=== PATIENT | male | born 1990 ===

== ENCOUNTER 2021-05-24 17:23 | Emergency (ER) | payer SELFPAY ==
[2021-05-24] MEDS ORDERED: LORazepam 2 MG/ML VIAL IM PRN (17:59)
[2021-05-24] MEDS ORDERED: LORazepam 1 MG TAB PO ONE (17:59)
[2021-05-24] MEDS ORDERED: HALOPERIDOL LACTATE 5 MG/1 ML INJ IM PRN (17:59)
--- NOTE | 2021-05-24 18:00 | Emergency Department Report ---
ED General Adult HPI - General Chief complaint: Psych Stated complaint: I feel like my brain is out of control Time Seen by Provider: 05/24/21 17:52 Source: patient, RN notes reviewed Mode of arrival: Ambulatory Limitations: No Limitations - History of Present Illness Initial comments: The patient was evaluated in the emergency department for symptoms described in the history of present illness. He/she was evaluated in the context of the global COVID-19 pandemic, which necessitated consideration that the patient might be at risk for infection with the virus that causes COVID-19. Institutional protocols and algorithms that pertain to the evaluation of patients at risk for COVID-19 are in a state of rapid change based on information released by regulatory bodies including the CDC and federal and state organizations. These policies and algorithms were followed during the patient's care in the emergency department. Please note that these policies, procedures and recommendations changed on a rapid basis. The patient is a 30-year-old gentleman, who is not known to myself previously, with a past history of psychiatric disease, who presents to the ER with a request/chief complaint of "it feels like my brain is running away from me." The patient denies physical pain, but endorses racing thoughts. He endorses nonspecific hallucinations. He denies homicidal and suicidal ideation. He denies access to guns or firearms. He denies urinary symptoms. He denies Covid symptoms. He he reports recent psychiatric evaluation, and reports being started on psychiatric medications, which he states "are not working for me." -: Gradual Consistency: constant Improves with: none Worsens with: none Associated Symptoms: denies other symptoms - Related Data Previous Rx's Medication Instructions Recorded Last Taken Type OLANZapine [Zyprexa] 15 mg PO DAILY 30 Days #30 05/25/21 Unknown Rx Allergies Allergy/AdvReac Type Severity Reaction Status Date / Time No Known Allergies Allergy Unverified 05/24/21 17:29 ED Review of Systems ROS: Stated complaint: MENTAL EVAL Other details as noted in HPI Constitutional: denies: fever Eyes: denies: eye discharge ENT: denies: epistaxis Respiratory: denies: cough Cardiovascular: denies: chest pain, palpitations Gastrointestinal: denies: abdominal pain Genitourinary: denies: dysuria Psychiatric: as per HPI, anxiety, auditory hallucinations, visual h allucinations. denies: homicidal thoughts, suicidal thoughts ED Past Medical Hx - Medications Home Medications: Home Medications Medication Instructions Recorded Confirmed Last Taken Type OLANZapine [Zyprexa] 15 mg PO DAILY 30 Days #30 05/25/21 Unknown Rx ED Physical Exam - General Limitations: No Limitations General appearance: alert, anxious - Head Head exam: Present: atraumatic, normocephalic - Eye Eye exam: Present: normal appearance, PERRL, EOMI. Absent: nystagmus - ENT ENT exam: Present: normal exam, normal orophraynx, mucous membranes moist, normal external ear exam - Neck Neck exam: Present: normal inspection, full ROM. Absent: tenderness, meningismus - Respiratory Respiratory exam: Present: normal lung sounds bilaterally. Absent: respiratory distress, wheezes, rales, rhonchi, stridor, decreased breath sounds - Cardiovascular Cardiovascular Exam: Present: normal rhythm, tachycardia, normal heart sounds. Absent: bradycardia, irregular rhythm, systolic murmur, diastolic murmur, rubs, gallop - GI/Abdominal GI/Abdominal exam: Present: soft. Absent: distended, tenderness, guarding, rebound, rigid, pulsatile mass - Rectal Rectal exam: Present: deferred - Extremities Exam Extremities exam: Present: normal inspection, full ROM, other (2+ pulses noted in the bilateral upper and lower extremities. There is no palpable cord. negative Homans sign. Muscular compartments are soft. The pelvis is stable.). Absent: pedal edema, calf tenderness - Back Exam Back exam: Present: normal inspection, full ROM. Absent: tenderness, CVA tenderness (R), CVA tenderness (L), paraspinal tenderness, vertebral tenderness - Neurological Exam Neurological exam: Present: alert, normal gait, other (No facial droop. Tongue midline. Extraocular movements intact bilaterally. Facial sensation intact to light touch in V1, V2, V3 distribution bilaterally. 5 and a 5 strength in 4 ext remities. Sensation intact to light touch in 4 extremities.). Absent: motor sensory deficit - Psychiatric Psychiatric exam: Present: normal mood, anxious - Skin Skin exam: Present: warm, dry, intact, normal color. Absent: rash ED Course Vital Signs 05/24/21 05/24/21 05/24/21 17:36 18:36 22:00 Temperature 97.2 F L 98.7 F Pulse Rate 117 H 114 H Respiratory 18 18 Rate Blood Pressure 140/70 120/84 [Left] O2 Sat by Pulse 99 97 Oximetry 05/25/21 10:57 Temperature Pulse Rate Respiratory Rate Blood Pressure [Left] O2 Sat by Pulse 97 Oximetry - Reevaluation(s) Reevaluation #1: 05/24/21 18:43 Differential diagnosis, including but not limited to: Psychosis, disorganized be havior, secondary gain, medical screening examination, behavioral health screening examination Assessment and plan: 30-year-old gentleman, who was afebrile with reassuring vital signs (blood pressure 140/70 mmHg systolic), tachycardic, likely secondary to anxiety, as well as decompensated psychiatric disease, presenting to the ER today primarily for medical clearance for psychiatric evaluation. Patient placed on hold status. Appropriate screening laboratory studies ordered. As needed medications ordered. Psychiatric consultation requested. Anticipate that the psychiatric team will recommend 1013 hold for decompensated psychosis and delusions. Covid swab ordered in anticipation of potential psychiatric placement and disposition. We are currently awaiting laboratory studies and psychiatric consultation at this time 05/24/21 19:29 Laboratory studies are reviewed and appreciated they are unremarkable. Mental health consultation is pending at this time. The emergency room will follow along as this patient provides a urinalysis. Presuming tachycardia resolved, which we anticipate it will once anxiolysis is provided, we would consider this patient medically suitable for psychiatric disposition, placement. Reevaluation #2: 05/25/21 11:40 The patient is seen and reexamined. He is awake, alert, oriented and ambulating with a steady gait. He is not homicidal suicidal. He denies physical pain. His tachycardia is improved. He ate breakfast this morning without difficulty. Nursing team endorses no acute issues or emergent issues at this time. The patient was deemed medically suitable for psychiatric consultation and evaluation by myself yesterday. The psychiatric team have recommended discontinuation of 1013. He will therefore be discharged with outpatient resources. Indeterminant Covid swab reviewed and appreciated. Patient denied Covid symptoms to myself. His lung sounds are clear, and he is not hypoxic. He can follow-up as an outpatient for repeat testing ED Medical Decision Making - Lab Data Result diagrams: 05/24/21 18:10 05/24/21 18:10 Vital Signs 05/24/21 18:36 Temperature 97.2 F L Pulse Rate 117 H Respiratory 18 Rate O2 Sat by Pulse 99 Oximetry Vital Signs 05/24/21 18:36 Temperature 97.2 F L Pulse Rate 117 H Respiratory 18 Rate O2 Sat by Pulse 99 Oximetry Lab Results 05/24/21 05/24/21 05/24/21 Range/Units 18:10 18:10 18:10 WBC 8.6 (4.5-11.0) K/mm3 RBC 4.54 (3.65-5.03) M/mm3 Hgb 13.3 (11.8-15.2) gm/dl Hct 40.2 (35.5-45.6) % MCV 89 (84-94) fl MCH 29 (28-32) pg MCHC 33 (32-34) % RDW 14.1 (13.2-15.2) % Plt Count 321 (140-440) K/mm3 Sodium 140 (137-145) mmol/L Potassium 4.5 (3.6-5.0) mmol/L Chloride 103.7 (98-107) mmol/L Carbon Dioxide 21 L (22-30) mmol/L Anion Gap 20 mmol/L BUN 16 (9-20) mg/dL Creatinine 0.9 (0.8-1.3) mg/dL Estimated GFR > 60 ml/min BUN/Creatinine Ratio 18 % Glucose 116 H (75-100) mg/dL Calcium 9.1 (8.4-10.2) mg/dL Plasma/Serum Alcohol < 0.01 (0-0.07) % Critical care attestation.: If time is entered above; I have spent that time in minutes in the direct care of this critically ill patient, excluding procedure time. ED Disposition Clinical Impression: Encounter for medical screening examination, Encounter for behavioral health screening, History of schizophrenia Disposition: 01 HOME / SELF CARE / HOMELESS Is pt being admited?: No Does the pt Need Aspirin: No Condition: Good Additional Instructions: Please follow-up with outpatient resources that have been provided to the patient. Recommend outpatient COVID-19 testing, and a swab that patient had in the department was inconclusive. We do not suspect that the patient has Covid at this time. Avoid consumption of alcohol, tobacco, drugs and smoke products. Follow-up with outpatient resources that have been provided to the patient. Follow-up with your primary care doctor within the next month. Follow-up with an outpatient mental health specialist within the next week. Please return to the emergency room right away with new pain, worsened pain, migration of pain, projectile vomiting, change in mental status, confusion, inability tolerate liquid feeds, new, worsened or different symptoms not present on the initial emergency room evaluation Professional and Agency Contacts To help Resolve Crises (10/11) ID Crisis Line: Suicide Prevention Line: Crisis Text Line: Text START to 961516 Emergency: 911 Outpatient COMMUNITY Behavioral Health Resources: [facility]: [facility] [address], [place] [address] [place]: [facility] [address] [place] [address] Thursday thru Thursday - 8am - 5pm Call to schedule an assessment for mental health and substance abuse programs [facility] Address: [address] [place] [address] Thursday thru Thursday- 7am-2pm [facility] Address: [address] [place] [address] Thursday thru Thursday: 8:30AM-5PM Prescriptions: OLANZapine [Zyprexa] 15 mg PO DAILY 30 Days #30 Referrals: [facility] [Provider Group] - 3-5 Days [facility] [Outside] - 3-5 Days [facility] [Outside] - 3-5 Days
[2021-05-24 18:26] LABS: Hematocrit 40.2 % (35.5-45.6); Hemoglobin 13.3 gm/dl (11.8-15.2); Mean Corpuscular HGB Conc 33 % (32-34); Mean Corpuscular Volume 89 fl (84-94); Platelet Count 321 K/mm3 (140-440); Red Blood Count 4.54 M/mm3 (3.65-5.03); Red Cell Distribution Width 14.1 % (13.2-15.2)
[2021-05-24 18:41] LABS: BUN/Creatinine Ratio 18; Blood Urea Nitrogen 16 mg/dL (9-20); Calcium 9.1 mg/dL (8.4-10.2); Hemolysis Index 6
[2021-05-25 00:01] VITALS: BP 120/84
--- NOTE | 2021-05-25 11:16 | Consultation ---
History of Present Illness - Reason for Consult Consult date: 05/25/21 Reason for consult: mental health evaluation - History of Present Psychiatric Illness The patient is a 30 year old male with history of Paranoid Schizophrenia. In my interview with the patient, he is calm, alert and oriented x3. The patient patient reports being compliant with medications. He states " I keep flying out of my body." He endorses non commanding auiditory/visual hallucinations " voices saying save the word and I see bullets." He denies any current suicidal /homicidal ideation. PAST PSYCHIATRIC HISTORY Diagnoses:Paranoid Schizophrenia Suicide attempts or Self-harm behavior: Denies Prior psychiatric hospitalizations: Yes Substance Abuse history: Denies Previous psychiatric medications tried: Zyprexa, Risperidone Outpatient treatment: Denies PAST MEDICAL HISTORY: Family Psychiatric History: Not available SOCIAL HISTORY Marital Status: Single Living Arrangements: Homeless Employment Status: Unemployed Access to guns/weapons: None reported Education:GED History of Abuse: None reported Legal History: None reported REVIEW OF SYSTEMS Constitutional: Negative for weight loss ENT: Negative for stridor Respiratory: Negative for cough or hemoptysis All other systems reviewed and are negative MENTAL STATUS EXAMINATION General Appearance and Behavior: Age appropriate, good hygiene, wearing appropriate clothes, good eye contact, cooperative polite with questioning. Cooperation: Participating/engaged Psychomotor Behavior: unremarkable and within normal limits Mood:"ok" Affect and affective range: congruent with mood Thought Process: Goal directed Thought Content: reality oriented Speech: Normal volume, Regular rate and rhythm Intellectual Functioning: Average Suicidal Ideation: Denies Homicidal Ideation: Denies Hallucinations: Denies Impulse Control: Unimpaired Insight and Judgment: Normal insight and judgment Memory: Normal Attention: Divided Orientation: Alert, oriented Assessment and Plan (1) Schizophrenia Current Visit: Yes Status: Acute RECOMMENDATIONS [id number] continue home meds. Case management Risks, benefits and alternatives of medications discussed with the patient, questions answered and consent obtained from patient. PSYCHOTHERAPY: Supportive psychotherapy provided MEDICAL: Per primary team DELIRIUM PRECAUTIONS: Please re-orient patient frequently, keep lights on during the day, and minimize benzodiazepines and opiates as these medications could worsen patient's confusion. 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 Belly Packer will provide patient with psychiatric outpatient resources FOLLOW-UP: Will sign off. Thank you for the consult. Please contact with any questions and/or concerns. Medications and Allergies Allergies Allergy/AdvReac Type Severity Reaction Status Date / Time No Known Allergies Allergy Unverified 05/24/21 17:29 Home Medications Medication Instructions Recorded Confirmed Last Taken Type OLANZapine [Zyprexa] 15 mg PO DAILY 30 Days #30 05/25/21 Unknown Rx Active Meds: Active Medications Haloperidol Lactate (Haloperidol Lactate 5 Mg/1 Ml Inj) 5 mg IM Q6HR PRN PRN Reason: Agitation Lorazepam (Lorazepam 2 Mg/Ml Vial) 2 mg IM Q4HR PRN PRN Reason: Agitation Mental Status Exam - Vital signs Last Vital Signs Temp 98.7 F 05/24/21 22:00 Pulse 114 H 05/24/21 22:00 Resp 18 05/24/21 22:00 BP 120/84 05/24/21 22:00 Pulse Ox 97 05/25/21 10:57 Results Result Diagrams: 05/24/21 18:10 05/24/21 18:10 Abnormal lab results 05/24/21 05/24/21 05/24/21 Range/Units 18:10 18:10 18:10 Carbon Dioxide 21 L (22-30) mmol/L Glucose 116 H (75-100) mg/dL Salicylates < 0.3 L (2.8-20.0) mg/dL Acetaminophen 5.0 L (10.0-30.0) ug/mL All other labs normal.
== END 2021-05-25 12:50 | disposition home or self-care (01) ==
LOC: ED 17:23
DX: Z13.30 Encounter for screening examination for mental health and behavioral disorders, unspecified (principal); F20.9 Schizophrenia, unspecified; R94.6 Abnormal results of thyroid function studies; Z20.822 Contact with and (suspected) exposure to COVID-19
CPT/HCPCS: 36415; 80048; 84443; 85027; 99284; U0003; 80320; G0480